=== PATIENT | female | born 1970 | race Hispanic/Latino ===

== ENCOUNTER 2018-06-22 20:17 | Emergency (ER) | payer OTHER ==
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
[2018-06-22] MEDS ORDERED: IBUPROFEN PO ONE (21:49)
[2018-06-22] MEDS ORDERED: TYLENOL PO ONE (21:49)
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
[2018-06-23 04:32] VITALS: BP 121/78
== END 2018-06-23 04:32 | disposition home or self-care (01) ==
LOC: ED 20:17
DX: S43.401A Unspecified sprain of right shoulder joint, initial encounter (principal); G44.309 Post-traumatic headache, unspecified, not intractable; M62.838 Other muscle spasm; I10 Essential (primary) hypertension; Z90.710 Acquired absence of both cervix and uterus; Z88.0 Allergy status to penicillin; V49.59XA Passenger injured in collision with other motor vehicles in traffic accident, initial encounter; Y93.89 Activity, other specified; Y92.410 Unspecified street and highway as the place of occurrence of the external cause; Y99.8 Other external cause status
CPT/HCPCS: 70450; 72040; 72125